=== PATIENT | female | born 1955 | race Caucasian/White ===

== ENCOUNTER → 2019-01-09 | Outpatient (CLI) | payer OTHER ==
[~2019-01-09] MED LIST: LEVOTHYROXINE50 MCG PO; NAPROXEN250 MG PO; OXYBUTYNIN CHLOR5 MG PO
--- NOTE | 2019-01-23 08:37 | Polysomnography ---
DATE OF STUDY: 01/09/2019 REFERRING PHYSICIAN: Mike Gonzales MD STUDY: Diagnostic Polysomnogram. HISTORY OF PRESENT ILLNESS: Ms. Galdamez is a 63-year-old female with witnessed apneas and gasping awakenings. PAST MEDICAL HISTORY: Hypothyroidism, allergies, rare GERD. MEDICATIONS: Include Singulair, Symbicort, ProAir, levothyroxine, ipratropium nasal spray. BMI is 32. [place] Sleepiness Scale score is 15. The patient presents for a diagnostic polysomnogram, type 3 portable monitor system. FINDINGS: Polysomnogram was assessed with an eight channel device. Total sleep time was 606.5 minutes with sleep efficiency of 98.7%. Sleep onset latency as early as 1 minute into recording. A total of 402 obstructive apneas, 20 central apneas, and 58 hypopneas were noted for apnea-hypopnea index of 47.5 events per hour. Lowest oxygen saturation recorded on this night was 78%. INTERPRETATION: This was an abnormal polysomnogram/home sleep study due to the presence of: 1) Severe obstructive sleep apnea. Sleep apnea may be associated with obesity, obstructive/anatomic abnormalities of the upper airway, and thyroid disease. A clinical evaluation of these factors associated with sleep apnea is indicated. The patient is recommended for a CPAP device. If Auto-CPAP is determined reasonable for this patient, then usual settings with support between 4-20 cm water pressure can be considered. Consideration for overnight oximetry may be done given the desaturations noted on this study. Clinical correlation is recommended. Alternative treatments may include ENT surgery or an oral appliance if these are deemed reasonable. Mike Gonzales MD ABI Certified in Sleep Medicine GMN/MODL /[id number] ARTHUR
== END ==
LOC: SLEEP 20:18
PROVIDERS: ATTEND Internal Medicine Critical Care Medicine
DX: G47.33 Obstructive sleep apnea (adult) (pediatric) (principal)
CPT/HCPCS: 95806

== ENCOUNTER → 2019-03-10 | Outpatient (CLI) | payer OTHER ==
--- NOTE | 2019-03-10 14:05 | Diagnostic Imaging Report ---
EXAMINATION: SP LUMBAR, COMPLETE MIN 4VW INDICATION: Back pain COMPARISON: None FINDINGS: AP, lateral and oblique images of the lumbar spine demonstrate no compression fracture. Vertebral body heights are maintained. Minimal anterolisthesis at L5-S1. Alignment is otherwise anatomic. L5-S1 facet arthropathy. L5 pars interarticularis defects. Nonobstructive bowel gas pattern. No free air. Degenerative changes of both hip joints. IMPRESSION: No compression fracture. Minimal L5-S1 anterolisthesis with associated L5 pars interarticularis defect and degenerative changes with facet arthropathy. Signed by: Logan Montez MD on 03/10/2019 2:01 PM
== END ==
LOC: RAD 11:59
DX: M54.5 Low back pain (principal)
CPT/HCPCS: 72110

== ENCOUNTER → 2019-05-01 | Outpatient (CLI) | payer OTHER | LOC: RAD 08:45 | PROVIDERS: ATTEND Internal Medicine Critical Care Medicine | DX: R06.00 Dyspnea, unspecified (principal); J30.9 Allergic rhinitis, unspecified; J45.909 Unspecified asthma, uncomplicated; G47.33 Obstructive sleep apnea (adult) (pediatric); Z68.35 Body mass index [BMI] 35.0-35.9, adult; R94.2 Abnormal results of pulmonary function studies | CPT/HCPCS: 93306 ==

== ENCOUNTER → 2021-08-31 | Outpatient (CLI) | payer MEDICARE, OTHER | LOC: MRI 09:59 | DX: M54.2 Cervicalgia (principal); M54.50 Low back pain, unspecified | CPT/HCPCS: 72050; 72148 ==

== ENCOUNTER → 2021-11-21 | Outpatient (CLI) | payer MEDICARE, OTHER | LOC: RAD 15:41 | DX: R05.9 Cough, unspecified (principal) | CPT/HCPCS: 71046 ==

== ENCOUNTER → 2021-11-25 | Outpatient (CLI) | payer MEDICARE, OTHER | LOC: MRI 07:37 | DX: M54.2 Cervicalgia (principal) | CPT/HCPCS: 72141 ==

== ENCOUNTER → 2022-05-10 | Outpatient (CLI) | payer MEDICARE, OTHER | LOC: CT 09:54 | PROVIDERS: ATTEND Urology | DX: N20.0 Calculus of kidney (principal) | CPT/HCPCS: 74176 ==